=== PATIENT | male | born 1965 | race African-American/Black ===

== ENCOUNTER 2021-07-25 18:22 | Emergency (ER) | payer OTHER ==
[~2021-07-25] VITALS: Ht 180.3 cm; Wt 88.6 kg
[2021-07-25] MEDS ORDERED: LORazepam 2 MG/ML VIAL IM ONE (20:15)
[2021-07-25] MEDS ORDERED: DiphenhydrAMINE HCL 50 MG/ML VIAL IM ONE (20:15)
[2021-07-25] MEDS ORDERED: HALOPERIDOL LACTATE 5 MG/ML VIAL IM ONE (20:15)
[2021-07-25 21:16] LABS: COVID AG,FIA SOURCE NASOPHARYNGEAL
[2021-07-26 10:59] VITALS: BP 149/84
== END 2021-07-26 11:04 | disposition home or self-care (01) ==
LOC: EMS 18:22
DX: F43.10 Post-traumatic stress disorder, unspecified (principal); F43.20 Adjustment disorder, unspecified; Z20.822 Contact with and (suspected) exposure to COVID-19
CPT/HCPCS: 36415; 87426; 96372; 99285; J1200; J1630; J2060